=== PATIENT | male | born 1980 | race Caucasian/White ===

== ENCOUNTER 2018-05-20 12:45 | Emergency (ER) | payer OTHER ==
[~2018-05-20] VITALS: Ht 172.7 cm; Wt 84.1 kg
[2018-05-20 13:00] VITALS: Ht 172.7 cm; Wt 84.1 kg
[2018-05-20] MEDS ORDERED: PRAVACHOL20 MG PO (13:06)
[2018-05-20] MEDS ORDERED: NAPROSYN500 MG PO (15:34)
[2018-05-20] MEDS ORDERED: TYLENOL W/CODEI1 TAB PO (15:34)
[2018-05-20 16:30] VITALS: BP 142/90
== END 2018-05-20 16:31 | disposition home or self-care (01) ==
LOC: D.ER 12:45 → EDBD 12:45 → D.ER 16:31
DX: S40.811A Abrasion of right upper arm, initial encounter (principal); S20.311A Abrasion of right front wall of thorax, initial encounter; S70.211A Abrasion, right hip, initial encounter; S80.811A Abrasion, right lower leg, initial encounter; S50.811A Abrasion of right forearm, initial encounter; V23.4XXA Motorcycle driver injured in collision with car, pick-up truck or van in traffic accident, initial encounter; Y93.89 Activity, other specified; Y92.410 Unspecified street and highway as the place of occurrence of the external cause; S70.01XA Contusion of right hip, initial encounter